=== PATIENT | female | born 1950 | race Caucasian/White ===

== ENCOUNTER 2018-08-08 14:47 | Emergency (ER) | payer BC ==
[2018-08-08 15:24] VITALS: BP 130/71
[2018-08-08] MEDS ORDERED: Tetan/Diph/Pertus SYR(Tdap)* 0.5 ML SYR(BOOSTRIX) use SYR IM ONE (15:39)
--- NOTE | 2018-08-08 16:07 | UC ---
Hand/Wrist HPI - HPI Summary HPI Summary: 68-year-old female presents with laceration to the tip of her left index finger. States she cut the finger while using a rotary cutting tool for cutting fabric just prior to arrival. She was unable to get the bleeding under control at home using direct pressure and came directly to the urgent care. Tetanus status is unknown. - History Of Current Complaint Chief Complaint: UCLaceration Stated Complaint: LAC-LT INDEX FINGER Time Seen by Provider: 08/08/18 15:30 Hx Obtained From: Patient Pain Intensity: 0 - Allergies/Home Medications Allergies/Adverse Reactions: Allergies Allergy/AdvReac Type Severity Reaction Status Date / Time No Known Allergies Allergy Verified 08/08/18 15:24 Home Medications: Home Medications NK [No Home Medications Reported] 08/08/18 [History Confirmed 08/08/18] PMH/Surg Hx/FS Hx/Imm Hx Previously Healthy: Yes - Denies significant PMH. - Surgical History Surgical History: Yes Surgery Procedure, Year, and Place: eye surgeries - Family History Known Family History: Positive: Non-Contributory - Social History Occupation: Retired Lives: Alone Alcohol Use: Rare Substance Use Type: None Smoking Status (MU): Never Smoked Tobacco Review of Systems All Other Systems Reviewed And Are Negative: Yes Constitutional: Positive: Negative Skin: Positive: Other - See HPI Respiratory: Positive: Negative Cardiovascular: Positive: Negative Gastrointestinal: Positive: Negative Genitourinary: Positive: Negative Musculoskeletal: Positive: Negative Neurological: Positive: Negative Is Patient Immunocompromised?: No Physical Exam - Summary Physical Exam Summary: 68-year-old female presents with laceration to the tip of her left index finger. States she cut the finger while using a rotary cutting tool for cutting fabric just prior to arrival. She was unable to get the bleeding under control at home using direct pressure and came directly to the urgent care. Tetanus status is unknown. Triage Information Reviewed: Yes Vital Signs: Initial Vital Signs Temp 97.7 F 08/08/18 15:18 Pulse 71 08/08/18 15:18 Resp 16 08/08/18 15:18 BP 130/71 08/08/18 15:18 Pulse Ox 97 08/08/18 15:18 Vital Signs Reviewed: Yes Hand/Wrist Course/Dx - Course Course Of Treatment: 68-year-old female presents with laceration to the tip of her left index finger. States she cut the finger while using a rotary cutting tool for cutting fabric just prior to arrival. She was unable to get the bleeding under control at home using direct pressure and came directly to the urgent care. Tetanus status is unknown. Afebrile. Vital signs stable. Exam revealed a 1 cm x 0.5 cm skin avulsion to the tip of her left index finger with uncontrolled bleeding. Attempted controlled the bleeding using direct pressure for 15 minutes but the wound continued to ooze significantly so a finger tourniquet was applied by myself, Surgicel was applied to the wound, and continue direct pressure was maintained. Hemostasis was successfully achieved, the tourniquet was removed, and the wound was covered with a gauze dressing and tube gauze. Total time with tourniquet was less than 10 minutes. Patient's tetanus was updated. She is to follow-up with her primary care provider in 3 days for a wound check. Wound care, and dysphoric guidance, and warning symptoms reviewed with the patient. Verbalizes understanding and agrees with plan of care. - Differential Dx/Diagnosis Differential Diagnosis/HQI/PQRI: Other - laceration, avulsion Provider Diagnosis: Avulsion of skin of finger Discharge - Sign-Out/Discharge Documenting (check all that apply): Patient Departure All imaging exams completed and their final reports reviewed: No Studies - Discharge Plan Condition: Stable Disposition: HOME Patient Education Materials: Skin Avulsion (ED) Referrals: Catherine Solo MD [Primary Care Provider] - 3 Days (For wound check.) Additional Instructions: You have an avulsion of the left index finger that is not repairable. It will need to slowly heal from the inside out over the next several weeks. We used a special dressing using a substance called Surgicel to help stop the bleeding. You may remove the gauze dressing that was applied in 24 hours but try to avoid disturbing the clot as this may cause the wound to bleed again. You may apply a small amount of antibiotic ointment to the wound. Keep it covered with a large Band-Aid at all times. Change at least once a day and any time it becomes wet or soiled. Use acetaminophen (Tylenol) or ibuprofen (Advil, Motrin) according to directions as needed for pain. Your tetanus was updated today. You should notify your primary care provider so that they can update your records. Follow up with your primary care provider in 3 days for a wound check. Call tomorrow for an appointment. Watch for signs of infection including fever greater than 100.5 F, pain that is not managed with her pain medication, redness that spreads, swelling of the finger, or pus draining from the wound. Seek immediate medical attention should any of these occur. - Billing Disposition and Condition Condition: STABLE Disposition: Home
== END 2018-08-08 16:15 | disposition home or self-care (01) ==
LOC: UCCORT 14:47
DX: S61.211A Laceration without foreign body of left index finger without damage to nail, initial encounter (principal); W29.3XXA Contact with powered garden and outdoor hand tools and machinery, initial encounter; Y92.9 Unspecified place or not applicable
CPT/HCPCS: 90471; 90715; 99211; G0463